=== PATIENT | female | born 1995 | race Caucasian/White ===

== ENCOUNTER 2017-12-13 19:48 | Emergency (ER) | payer BC ==
[2017-12-13] MEDS ORDERED: Sulfamethox/Trimethoprim DS 800/160* TAB PO ONE (20:16)
--- NOTE | 2017-12-13 20:16 | UC ---
Complaint Female HPI - HPI Summary HPI Summary: Complains of burning with urination, increased urinary frequency, increased urinary urge starting today. Denies fever, cough, sore throat, CP, N/V/D, abdominal pain, change in urine, vaginal symptoms, change in BM, back pain. Medical history is none. - History Of Current Complaint Stated Complaint: UTI Time Seen by Provider: 12/13/17 20:02 Hx Obtained From: Patient Onset/Duration: Gradual Onset Timing: Constant Severity Initially: Mild Severity Currently: Mild Pain Scale Used: 0-10 Numeric Character: Burning Associated Signs And Symptoms: Positive: Negative PMH/Surg Hx/FS Hx/Imm Hx - Family History Known Family History: Positive: None - Social History Occupation: Student Lives: Dormitory/Roommates Alcohol Use: Occasionally Substance Use Type: None Smoking Status (MU): Never Smoked Tobacco Review of Systems Constitutional: Negative Skin: Negative Eyes: Negative ENT: Negative Respiratory: Negative Cardiovascular: Negative Gastrointestinal: Negative Genitourinary: Dysuria, Frequency, Urgency Motor: Negative Neurovascular: Negative Musculoskeletal: Negative Neurological: Negative Psychological: Negative All Other Systems Reviewed And Are Negative: Yes Physical Exam Triage Information Reviewed: Yes Appearance: Well-Appearing Vital Signs Reviewed: Yes Eye Exam: Normal Neck exam: Normal Respiratory Exam: Normal Cardiovascular Exam: Normal Abdominal Exam: Normal Musculoskeletal Exam: Normal Neurological Exam: Normal Psychological Exam: Normal Skin Exam: Normal Complaint Female Dx - Course Course Of Treatment: Complains of burning with urination, increased urinary frequency, increased urinary urge starting today. Denies fever, cough, sore throat, CP, N/V/D, abdominal pain, change in urine, vaginal symptoms, change in BM, back pain. Medical history is none. Vital signs normal. Urinalysis positive for UTI. Rx for Bactrim 10 days. - Differential Dx/Diagnosis Provider Diagnoses: uti Discharge - Sign-Out/Discharge Documenting (check all that apply): Patient Departure All imaging exams completed and their final reports reviewed: No Studies - Discharge Plan Condition: Stable Disposition: HOME Prescriptions: Sulfamethox/Trimethoprim DS* [Bactrim DS 800/160 TAB*] 1 tab PO BID 10 Days #20 tab Patient Education Materials: Urinary Tract Infection in Women (ED) Referrals: No Primary Care Phys,NOPCP [Primary Care Provider] - Additional Instructions: Take antibiotics as directed. Return for any new or worsening symptoms - Billing Disposition and Condition Condition: STABLE Disposition: Home - Attestation Statements Provider Attestation: I was available for consult. This patient was seen by the SCARLETT. The patient was not presented to, seen by, or examined by me. -Anna
[2017-12-13 20:23] VITALS: BP 115/71
== END 2017-12-13 20:37 | disposition home or self-care (01) ==
LOC: UCEAST 19:48
DX: N39.0 Urinary tract infection, site not specified (principal)
CPT/HCPCS: 81003; 84702; 87077; 87086; 87186; 99212; A9270-GY; G0463

== ENCOUNTER 2018-10-18 09:26 | Emergency (ER) | payer BC ==
[2018-10-18 09:58] VITALS: BP 102/65
--- NOTE | 2018-10-18 10:14 | UC ---
Skin Complaint HPI - HPI Summary HPI Summary: 22 yo female removed a tick from her left leg she suspects it was on a few hours because it was in a noticeable area pruritc rash in location of bite noted 2 days ago no starting to fade - History of Current Complaint Chief Complaint: UCSkin Time Seen by Provider: 10/18/18 10:02 Stated Complaint: TICK BITE Hx Obtained From: Patient Hx Last Menstrual Period: 10/01/18 Onset/Duration: Sudden Onset, Lasting Hours Skin Exposure Onset/Duration: Days Ago Timing: Constant Onset Severity: Mild Current Severity: Mild Pain Intensity: 2 - itchy Pain Scale Used: 0-10 Numeric Location: Diffuse Character: Pruritus, Redness Aggravating Factor(s): Touch Associated Signs & Symptoms: Positive: Rash Related History: Insect Bite/Sting - Allergy/Home Medications Allergies/Adverse Reactions: Allergies Allergy/AdvReac Type Severity Reaction Status Date / Time No Known Allergies Allergy Verified 10/18/18 09:57 PMH/Surg Hx/FS Hx/Imm Hx Previously Healthy: Yes - Surgical History Surgical History: None Surgery Procedure, Year, and Place: DENIES - Family History Known Family History: Positive: None Negative: Cardiac Disease, Hypertension, Diabetes - Social History Alcohol Use: Occasionally Substance Use Type: None Smoking Status (MU): Never Smoked Tobacco Review of Systems All Other Systems Reviewed And Are Negative: Yes Constitutional: Positive: Negative Skin: Positive: Rash Eyes: Positive: Negative ENT: Positive: Negative Respiratory: Positive: Negative Cardiovascular: Positive: Negative Gastrointestinal: Positive: Negative Genitourinary: Positive: Negative Motor: Positive: Negative Neurovascular: Positive: Negative Musculoskeletal: Positive: Negative Neurological: Positive: Negative Psychological: Positive: Negative Physical Exam Triage Information Reviewed: Yes Appearance: Well-Appearing, No Pain Distress, Well-Nourished Vital Signs: Initial Vital Signs Temp 98.7 F 10/18/18 09:54 Pulse 79 10/18/18 09:54 Resp 17 10/18/18 09:54 BP 102/65 10/18/18 09:54 Pulse Ox 100 10/18/18 09:54 Vital Signs Reviewed: Yes Eyes: Positive: Conjunctiva Clear ENT: Positive: Hearing grossly normal, Uvula midline. Negative: Nasal congestion, Nasal drainage, Trismus, Muffled voice, Hoarse voice Neck: Positive: Supple Respiratory: Positive: Lungs clear, Normal breath sounds, No respiratory distress Cardiovascular: Positive: RRR, No Murmur Musculoskeletal: Positive: ROM Intact, No Edema Neurological: Positive: Alert Psychological Exam: Normal Skin: Positive: Other - see image Images Front/Back of Body, Lg ([place]): 1 - 2x3cm irregular slightly raised red rash. no hint of bullseye Course/Dx - Diagnoses Provider Diagnosis: Tick bite of left lower leg Discharge - Sign-Out/Discharge Documenting (check all that apply): Patient Departure All imaging exams completed and their final reports reviewed: No Studies - Discharge Plan Condition: Stable Disposition: HOME Patient Education Materials: Tick Bite (ED) Referrals: Lisa Merritt MD [Primary Care Provider] - 2 Weeks (if you desire blood work to rule out lyme disease) Additional Instructions: This does not look like the rash associated with early Lyme disease (erthyema migrans) I suspect it is a local reaction to the bite It is doubtful that the tick was on long enough to cause Lyme Disease If you are concerned you could have a blood test in 2-3 weeks - Billing Disposition and Condition Condition: STABLE Disposition: Home
== END 2018-10-18 10:15 | disposition home or self-care (01) ==
LOC: UCEAST 09:26
DX: S80.862A Insect bite (nonvenomous), left lower leg, initial encounter (principal); W57.XXXA Bitten or stung by nonvenomous insect and other nonvenomous arthropods, initial encounter; Y92.9 Unspecified place or not applicable
CPT/HCPCS: 99211; G0463